=== PATIENT | male | born 1985 | race American Indian/Alaskan Native ===

== ENCOUNTER 2021-09-22 22:49 | Emergency (ER) | payer SELFPAY ==
[2021-09-23] MEDS ORDERED: ceFAZolin/Water 2 GM/20 ML 2 GM/20 ML SYRINGE IV ONE (00:34)
[2021-09-23] MEDS ORDERED: TETANUS,DIPH,PERTUSS(ACELL) VACCINE 0.5 ML SYRINGE IM ONE (00:34)
[2021-09-23] MEDS ORDERED: HYDROcodone/ACETAMINOPHEN 5-325 MG TAB PO ONE ×2 (00:34→02:17)
--- NOTE | 2021-09-23 01:11 | XRay Report ---
Left forearm, single view. HISTORY: Laceration COMPARISON: None FINDINGS: There is bandaging material and focal soft tissue prominence of the dorsal mid forearm, com patible with clinically reported laceration. Bandage material limits evaluation for radiopaque foreig n bodies, though no definite foreign body is identified. No acute fracture or malalignment. Signer Name: Marlo Stinson MD Signed: 09/23/2021 1:06 AM Workstation Name: [id number]
[2021-09-23] MEDS ORDERED: LIDOCAINE 2%/EPINEPHRINE 1:200,000 VIAL (20 ML) INFILTRATI ONE (02:17)
[2021-09-23] MEDS ORDERED: WATER FOR IRRIG STERILE 250 ML BOTTLE IR ONE (04:13)
[2021-09-23] MEDS ORDERED: SODIUM CHLORIDE 0.9% 1000 ML 1,000 ML ONE (04:23)
[2021-09-23] MEDS ORDERED: BACITRACIN/POLYMYXIN B OINT 28.35 GM TP ONE (05:12)
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
[2021-09-23 06:16] VITALS: BP 128/83
== END 2021-09-23 06:17 | disposition home or self-care (01) ==
LOC: ED 22:49
DX: S51.812A Laceration without foreign body of left forearm, initial encounter (principal); X58.XXXA Exposure to other specified factors, initial encounter; T14.8XXA Other injury of unspecified body region, initial encounter; F17.200 Nicotine dependence, unspecified, uncomplicated; F12.90 Cannabis use, unspecified, uncomplicated; Y93.89 Activity, other specified; Y92.009 Unspecified place in unspecified non-institutional (private) residence as the place of occurrence of the external cause; Y99.8 Other external cause status
CPT/HCPCS: 12042; 73090; 90471; 90715; 96374; 99284; J0690; J3490; J7030; Q0162